=== PATIENT | female | born 2005 | race Caucasian/White ===

== ENCOUNTER 2025-01-15 04:31 | Emergency (ER) | payer MEDICAID ==
[~2025-01-15] VITALS: Ht 170.2 cm; Wt 75.0 kg
[2025-01-15 05:17] VITALS: BP 99/61; PULSE 94; RESP 16; TEMP 97.7; O2SAT 100
== END 2025-01-15 05:39 ==
LOC: ER 04:32
DX: Z00.8 Encounter for other general examination (principal); M25.511 Pain in right shoulder
CPT/HCPCS: 99283

== ENCOUNTER 2025-01-20 02:28 | Emergency (ER) | payer MEDICAID ==
[~2025-01-20] VITALS: Ht 162.6 cm; Wt 73.3 kg
[2025-01-20 02:41] VITALS: BP 106/53; PULSE 98; O2SAT 100
[2025-01-20 02:42] VITALS: RESP 14
[2025-01-20 03:18] VITALS: TEMP 98.8
== END 2025-01-20 03:20 ==
LOC: ER 02:29
DX: S41.112A Laceration without foreign body of left upper arm, initial encounter (principal); X58.XXXA Exposure to other specified factors, initial encounter; Y93.89 Activity, other specified; Y92.89 Other specified places as the place of occurrence of the external cause; Y99.8 Other external cause status
CPT/HCPCS: 71046; 73080; 99284